=== PATIENT | female | born 1955 | race Hispanic/Latino ===

== ENCOUNTER 2016-09-02 06:08 | Day surgery (SDC) | payer MEDICARE ==
[2016-08-25 07:54] VITALS: BMI 34.2
[2016-09-02 07:01] VITALS: TEMP 98.2
[2016-09-02] MEDS ORDERED: Propofol 10 mg/ml Inj (20 ML) ONE ×2 (07:52→08:37)
[2016-09-02] MEDS ORDERED: Lidocaine 1% Inj (20ml) ONE (07:53)
[2016-09-02] MEDS ORDERED: Methylene Blue 10 mg/ml (1ml) Inj ONE (07:55)
[2016-09-02] MEDS ORDERED: Sodium Chloride 0.9% 1,000 ML IV SCH (09:00)
[2016-09-02 09:12] VITALS: RESP 16
[2016-09-02 10:15] VITALS: BP 114/62; PULSE 73; O2SAT 98
== END 2016-09-02 10:50 | disposition home or self-care (01) ==
LOC: ENDO 06:08
PROVIDERS: ATTEND Internal Medicine Gastroenterology
DX: K51.50 Left sided colitis without complications (principal); Z12.11 Encounter for screening for malignant neoplasm of colon; K64.0 First degree hemorrhoids
CPT/HCPCS: 45380; 88305; J2704; J3010; J7040 ×2; Q9968